=== PATIENT | female | born 1950 | race Caucasian/White ===

== ENCOUNTER → 2016-10-06 | Outpatient (CLI) | payer MEDICARE, OTHER ==
--- NOTE | 2016-10-06 16:12 | MR ---
EXAMINATION TYPE: MR cervical spine wo/w con DATE OF EXAM: 10/06/2016 COMPARISON: NONE HISTORY: csp myelopathy TECHNIQUE: Multiplanar, multisequence images of the cervical spine were acquired utilizing 20 mL intravenous Mul tiHance gadolinium contrast. Diffusion weighted imaging was performed. C2-C3: No evidence for degenerative disc disease. No disc bulge/herniation or protrusion. No Canal stenosis. Foramina are patent bilaterally. C3-C4: Mild right paracentral disc bulge is present with anterior thecal sac compression. No cord con tact or nerve impingement is evident. Mild right foraminal narrowing is present. C4-C5: Mild disc bulge is present with anterior thecal sac compression. No cord contact is evident. T his is greater into the right paracentral region. Correlate for displacement and compression of the e xiting C5 nerve root. C5-C6: Broad-based disc bulge is present with moderate anterior thecal sac compression. Cord contact may be present without cord deformity. No AP spinal canal stenosis is present. Mild foraminal narrowi ng is present bilaterally from uncovertebral joint hypertrophy. C6-C7: Mild central disc bulge is present with anterior thecal sac contact. No spinal canal stenosis is evident. No definite cord contact. There is moderate right foraminal stenosis. Left foramen is pat ent. C7-T1: No evidence for degenerative disc disease. No disc bulge/herniation or protrusion. No Canal stenosis. Foramina are patent bilaterally. Cervical segments are intact. There is normal alignment. Cervical spinal cord is of normal signal. Craniovertebral junction relationships are within normal limits. IMPRESSION: Broad-based disc bulging C5-6 C6-7 with anterior thecal sac compression. No cord deformity is evident . 2. Mild or disc bulging present at C3-4 and C4-5.
== END | disposition home or self-care (01) ==
LOC: RADMRIMAIN 13:37
PROVIDERS: ATTEND Psychiatry & Neurology Neurology
DX: M50.01 Cervical disc disorder with myelopathy, high cervical region (principal)
CPT/HCPCS: 72156; A9577

== ENCOUNTER → 2016-11-01 | Outpatient (CLI) | payer MEDICARE, OTHER ==
--- NOTE | 2016-11-01 07:26 | MR ---
EXAMINATION TYPE: MR brain wo/w con DATE OF EXAM: 11/01/2016 COMPARISON: NONE HISTORY: NEOPLASM DEMYELINATING TECHNIQUE: Multiplanar, multisequence images of the brain and brainstem is performed without and with IV contras t, utilizing 20 mL intravenous MultiHance . FINDINGS: Diffusion weighted images demonstrate no evidence of a recent infarct or other diffusion ab normality. There is mild generalized degenerative change. There are approximately 30-35 areas of abnormal signal white matter. The largest measuring 7 mm withi n the left parietal lobe. No enhancing lesions. No lesions. Single lesion within the posterior genuin e corpus callosum measuring 5 mm. Changes of chronic sinusitis. There is a focal area of abnormal signal within the right midbrain and odalis measuring less than 5 mm which is nonspecific. Midline structures demonstrate normal morphology. The craniocervical junction appears within normal limits. Post contrast images demonstrate no abnormal enhancement. The dural venous sinuses appear pa tent. IMPRESSION: 1. Mild degenerative change with nonspecific white matter changes. Differential include remote microv ascular ischemia and demyelinating process. 2. Focal less than 5 mm area of abnormal signal within the midbrain and odalis on the right is nonspeci fic. Remote ischemia in the differential diagnosis, no enhancement.
== END | disposition home or self-care (01) ==
LOC: RADMRIMAIN 05:54
PROVIDERS: ATTEND Psychiatry & Neurology Neurology
DX: R90.82 White matter disease, unspecified (principal); R90.89 Other abnormal findings on diagnostic imaging of central nervous system; D33.2 Benign neoplasm of brain, unspecified; R53.1 Weakness
CPT/HCPCS: 70553; A9577

== ENCOUNTER → 2018-09-05 | Outpatient (CLI) | payer MEDICARE, OTHER ==
[2018-09-05 13:39] LABS: Basophils # (A) 0.1 k/uL (0-0.2); Basophils % (A) 1 %; Eosinophils # (A) 0.1 k/uL (0-0.7); Eosinophils % (A) 2 %; HGB 13.8 gm/dL (11.4-16.0); Lymphocytes # (A) 1.8 k/uL (1.0-4.8); Lymphocytes % (A) 26 %; MCH 29.5 pg (25.0-35.0); MCHC 33.6 g/dL (31.0-37.0); MCV 87.8 fL (80.0-100.0); Mean Platelet Volume 7.4; Monocytes # (A) 0.4 k/uL (0-1.0); Monocytes % (A) 6 %; Neutrophils # (A) 4.5 k/uL (1.3-7.7); Neutrophils % (A) 65 %; Platelet Count 325 k/uL (150-450); RBC 4.67 m/uL (3.80-5.40); RDW 12.9 % (11.5-15.5); WBC 6.9 k/uL (3.8-10.6)
[2018-09-05 13:40] LABS: Appearance,Urine Clear (Clear); Bilirubin,Urine Negative (Negative); Blood,Urine Negative (Negative); Color,Urine Yellow; Glucose,Urine (UA) Negative (Negative); Ketones,Urine Negative (Negative); Leukocyte Esterase,Urine Negative (Negative); Nitrite,Urine Negative (Negative); PH, Urine 7.5 (5.0-8.0); Protein,Urine Trace (Negative); Specific Gravity,Urine 1.026 (1.001-1.035); Urobilinogen,Urine <2.0 mg/dL (<2.0)
--- NOTE | 2018-09-05 15:20 | XR ---
EXAMINATION TYPE: XR chest 2V DATE OF EXAM: 09/05/2018 COMPARISON: NONE HISTORY: Preoperative examination. TECHNIQUE: Frontal and lateral views of the chest are obtained. FINDINGS: There is no focal air space opacity, pleural effusion, or pneumothorax seen. The cardiac silhouette size is within normal limits. The osseous structures are intact. IMPRESSION: No acute cardiopulmonary process.
[2018-09-05 20:18] LABS: Albumin 4.6 g/dL (3.80-4.90); Albumin/Globulin Ratio 2.3 (1.60-3.17); Anion Gap 7.6 mmol/L (4.00-12.00); Calcium 9.8 mg/dL (8.7-10.3); Carbon Dioxide 26.4 mmol/L (21.6-31.8); Potassium 3.9 mmol/L (3.5-5.5); Total Bilirubin 0.5 mg/dL (0.2-1.2); Total Protein 6.6 g/dL (6.2-8.2)
[2018-09-06 04:18] LABS: Hemoglobin A1C 5.9 % (4.0-6.0)
== END | disposition home or self-care (01) ==
LOC: LABWHC1 12:59
PROVIDERS: ATTEND Family Medicine
DX: Z01.818 Encounter for other preprocedural examination (principal)
CPT/HCPCS: 36415; 71046; 80053; 81003; 83036; 85025; 86850; 86900; 86901; 87070; 87086

== ENCOUNTER → 2019-05-14 | Outpatient (CLI) | payer MEDICARE, OTHER ==
--- NOTE | 2019-05-14 17:48 | MR ---
EXAMINATION TYPE: MR knee RT wo con DATE OF EXAM: 05/14/2019 COMPARISON: None HISTORY: Rt knee pain, meniscus tear TECHNIQUE: Multiplanar, multisequence imaging of the right knee is performed without IV contrast. FINDINGS: There is nonspecific marrow edema involving the medial tibial plateau and lateral anterior femoral condyle. No erosive change. No sizable joint effusion. Cartilage appears to be maintained. However, there is f ibrillation along the lateral femoral articular surface best noted on image PD coronal fat sat #16 There is mild narrowing of the lateral patellar facet with thinning of the cartilage. Reactive marrow signal is seen involving the patella. Likely is post arthritic. Trace of fluid within the suprapatel lar bursa. Quadriceps and patellar tendons intact. Lateral collateral and medial collateral ligaments are normal. Anterior cruciate and posterior crucia te ligaments have a normal appearance. Intrasubstance signal seen within the posterior horn medial and lateral meniscus does not involve the articular surface and therefore is felt more typical of myxoid degeneration. There is subcentimeter Walker's cyst. IMPRESSION: 1. Osteoarthritis. Nonspecific marrow signal involving the anterior lateral femoral condyle and media l tibial plateau may be reactive secondary to post arthritic changes. There is fibrillation involving the anterior femoral articular cartilage along its medial margin compatible with chondromalacia. 2. Narrowing of the lateral patellar facet with thinning of the patellar cartilage and reactive marro w changes compatible with chondromalacia. No erosive changes. Findings compatible with osteoarthritis . 3. Intrasubstance signal posterior horn medial and lateral meniscus without definite articular extens ion. Therefore, myxoid degeneration favored over subtle tear correlate clinically. 4. No evidence of ligamentous tear. 5. There is a 1 cm area of abnormal signal involving the anterior lateral femoral condyle most likely related to reactive edema rather than osteochondritis.
== END | disposition home or self-care (01) ==
LOC: RADMRIMAIN 16:36
PROVIDERS: ATTEND Orthopaedic Surgery Adult Reconstructive Orthopaedic Surgery
DX: M17.11 Unilateral primary osteoarthritis, right knee (principal); R93.6 Abnormal findings on diagnostic imaging of limbs

== ENCOUNTER 2020-08-12 09:39 | Day surgery (SDC) | payer MEDICARE, OTHER ==
[2020-08-04 10:27] VITALS: BMI 33.2
[~2020-08-12 09:39] MED LIST: LACTATED RINGERS 1,000 ML IV SCH; LIDOCAINE 1% (10MG/ML) FOR IV START INTRADERMA PRN
[2020-08-12 10:22] VITALS: RESP 18; TEMP 98.7
[2020-08-12] MEDS ORDERED: PROPOFOL 10 MG/ML 20 ML VIAL IV ONE (11:12)
[2020-08-12] MEDS ORDERED: LIDOCAINE 1% INJ 10MG/ML (20 ML MDV) ONE (11:12)
[2020-08-12] MEDS ORDERED: MIDAZOLAM 2 MG/2 ML VIAL ONE (11:12)
[2020-08-12] MEDS ORDERED: fentaNYL (PF) 50 MCG/ML 2 ML AMP ONE (11:12)
--- NOTE | 2020-08-12 11:55 | P.PCN ---
Date of Procedure: 08/12/20 Description of Procedure: BRIEF HISTORY: Patient is a 69-year-old female presenting for outpatient colonoscopy for a history of colon polyps. Prior colonoscopy approximately 5 years ago with polypectomy of the time. She denies any change in bowel habits but does suffer from chronic constipation at baseline. PROCEDURE PERFORMED: Colonoscopy with polypectomy. PREOPERATIVE DIAGNOSIS: History of colon polyps, patient reports last colonoscopy 5 years ago. ESTIMATED BLOOD LOSS: Minimal. IV sedation per Anesthesia. PROCEDURE: After informed consent was obtained, the patient, was brought into the endoscopy unit. IV sedation was administered by Anesthesia under continuous monitoring. Digital rectal examination was normal. Initially the Olympus CF-190 flexible video colonoscope was then inserted in the rectum, gradually advanced into the cecum without any difficulty. Careful examination was performed as the scope was gradually being withdrawn. Ileocecal valve and the appendiceal orifice were visualized and appeared normal. Prep was excellent. Mucosa of the cecum, ascending colon, transverse colon, descending colon, sigmoid colon, and rectum appeared normal, with multiple small and large mouth diverticula in the sigmoid colon. A 5 mm cecal polyp was removed with cold snare polypectomy. Retroflexion was performed in the rectum and no lesions were seen, low-grade internal hemorrhoids. The patient tolerated the procedure well. IMPRESSION: Sessile cecal polyp removed with cold snare polypectomy. Moderate sigmoid diverticulosis. Internal hemorrhoids. RECOMMENDATIONS: Findings of this examination were discussed with the patient and her family. Okay to resume diet. Okay to resume medications. Await pathology from polypectomy. Recommend repeat colonoscopy in 5 years for colon polyps pending pathology from polypectomy.
[2020-08-12 12:15] VITALS: BP 141/61; PULSE 67
== END 2020-08-12 12:53 | disposition home or self-care (01) ==
LOC: ORWHC2ENDO 09:39
PROVIDERS: ATTEND Internal Medicine
DX: D12.0 Benign neoplasm of cecum (principal); K57.30 Diverticulosis of large intestine without perforation or abscess without bleeding; K64.8 Other hemorrhoids; K59.09 Other constipation; I10 Essential (primary) hypertension; E78.5 Hyperlipidemia, unspecified; Z79.899 Other long term (current) drug therapy; Z86.010 Personal history of colon polyps
CPT/HCPCS: 88305; 45385; J2250; J2001; J3010; J2704

== ENCOUNTER → 2021-02-23 | Outpatient (CLI) | payer MEDICARE, OTHER ==
--- NOTE | 2021-02-24 09:57 | MM ---
Reason for exam: screening (asymptomatic). Last mammogram was performed 7 years ago. History: Patient is postmenopausal. Family history of breast cancer in mother at age 62 and breast cancer in maternal aunt at age 50. Physical Findings: A clinical breast exam by your physician is recommended on an annual basis and results should be correlated with mammographic findings. MG 3D Screening Mammo W/Cad Bilateral CC and MLO view(s) were taken. XCCL view(s) were taken of the left breast. Prior study comparison: February 15, 2014, bilateral MG screening mammo w CAD. March 02, 2004, mammogram, performed at [facility]. There are scattered fibroglandular densities. Finding: There are typically benign round, linear calcifications in both breasts. There is no discrete abnormality. ASSESSMENT: Benign, BI-RAD 2 RECOMMENDATION: Routine screening mammogram of both breasts in 1 year.
== END | disposition home or self-care (01) ==
LOC: RADMAMWWP 09:52
PROVIDERS: ATTEND Family Medicine
DX: Z12.31 Encounter for screening mammogram for malignant neoplasm of breast (principal); Z80.3 Family history of malignant neoplasm of breast
CPT/HCPCS: 77063; 77067